=== PATIENT | male | born 1960 | race Two or more races ===

== ENCOUNTER 2020-05-07 05:11 | Inpatient (IN) | payer OTHER ==
[2020-05-07] VITALS (16 sets, daily range): BP systolic 104–131; BP diastolic 68–88
[~2020-05-07] VITALS: Ht 175.3 cm; Wt 108.9 kg
[~2020-05-07 05:11] MED LIST: AMLODIPINE BESY10 MG ORAL; LISINOPRIL40 MG ORAL
[2020-05-07] MEDS ORDERED: Tranexamic Acid 1,000 MG in NS 55 ML IVPB ONE (06:30)
[2020-05-07] MEDS ORDERED: Ropivacaine 5mg/ml Vial 20ml INJ ONE (06:31)
[2020-05-07] MEDS ORDERED: EPINEPHrine 1mg/1ml Amp ONE (06:31)
[2020-05-07] MEDS ORDERED: Bacitracin 50000 Units Vial ONE (06:32)
--- NOTE | 2020-05-07 06:35 | Anethesia Preoperative Eval ---
Anesthesia Pre-op PMH/ROS General Date of Evaluation: May 07, 2020 Time of Evaluation: 06:56 Anesthesiologist: Sona ASA Score: ASA 3 Mallampati Score Class I : Soft palate, uvula, fauces, pillars visible Class II: Soft palate, uvula, fauces visible Class III: Soft palate, base of uvula visible Class IV: Only hard plate visible Mallampati Classification: Class III Surgeon: Semaj Diagnosis: R Knee Pain Surgical Procedure: R Knee Total Arthroplasty Anesthesia History: none Family History: no anesthesia problems Allergies: Coded Allergies: No Known Allergies (Unverified , 05/03/20) Medications: see eMAR Patient NPO?: Yes Past Medical History Cardiovascular: Reports: HTN, other - HL Gastrointestinal/Genitourinary: Reports: GERD Other: obesity - BMI 35 Anesthesia Pre-op Phys. Exam Physician Exam Last Vital Signs Date Time Temp Pulse Resp B/P (MAP) Pulse Ox O2 Delivery O2 Flow Rate FiO2 05/07/20 05:38 97.7 79 18 122/76 (91) 97 Constitutional: NAD Neurologic: CN 2-12 intact Cardiovascular: RRR Respiratory: CTA Gastrointestinal: S/NT/ND Airway Exam Mallampati Score: Class III MO: full ROM: limited Teeth: missing, intact Anesthesia Pre-op A/P Risk Assessment & Plan Assessment: ASA 3 Plan: GA, SED, Adductor Block Status Change Before Surgery: No Pre-Antibiotics Dru Grams Ancef IV Given Within 1 Hr of Incision: Yes Time Given: 07:16 Dilip Magallanes MD May 07, 2020 06:35
[2020-05-07] MEDS ORDERED: Lidocaine 1% MPF 10mg/ml 5ml ONE (06:36)
[2020-05-07] MEDS ORDERED: Sodium Chloride 10ml vial INJ ONE (06:36)
[2020-05-07] MEDS ORDERED: NS Irrig 1000ml IRRIG ONE ×4 (06:37→07:41)
[2020-05-07] MEDS ORDERED: Hydromorphone 0.5mg/0.5ml inj IVP PRN (06:45)
[2020-05-07] MEDS ORDERED: fentaNYL 100 mcg/2 mL IV PRN (06:45)
[2020-05-07] MEDS ORDERED: Metoclopramide 10mg/2ml Inj IVP PRN (06:45)
[2020-05-07] MEDS ORDERED: Midazolam 2mg/2ml Inj IVP PRN (06:45)
[2020-05-07] MEDS ORDERED: DiphenhydrAMINE 50mg/ml Inj IVP PRN (06:45)
[2020-05-07] MEDS ORDERED: Labetalol 5mg/ml 20ml vial IV PRN (06:45)
[2020-05-07] MEDS ORDERED: Acetaminophen (Non formulary) 100 ML IV ONE (06:45)
[2020-05-07] MEDS ORDERED: HYDROcodone/Acetamin 7.5/325 tab ORAL PRN ×2 (06:45→07:15)
[2020-05-07] MEDS ORDERED: LORazepam Inj 2mg/ml 1ml IV PRN (06:45)
[2020-05-07] MEDS ORDERED: oxyCODONE HCL/Acetaminophen 5/325mg ORAL PRN (06:45)
[2020-05-07] MEDS ORDERED: Meperidine 25mg/1ml Inj (FOR RIGORS ONLY) IV PRN (06:45)
[2020-05-07] MEDS ORDERED: HYDROcodone/Acetamin 5/325 tab ORAL PRN (06:45)
[2020-05-07] MEDS ORDERED: Atropine Sulfate 0.4mg/ml inj IVP PRN (06:45)
[2020-05-07] MEDS ORDERED: LR 1000ml 1,000 ML IVLG SCH (06:45)
[2020-05-07] MEDS ORDERED: NS Irrig 1000ml ONE (07:00)
[2020-05-07] MEDS ORDERED: celeBREX 200mg Cap **SURGERY PATIENTS ONLY ORAL ONE (07:00)
[2020-05-07] MEDS ORDERED: oxyCONTIN 10mg tab ORAL ONE (07:00)
[2020-05-07] MEDS ORDERED: LR 1000ml ONE (07:00)
[2020-05-07] MEDS ORDERED: Sterile Water Irrig 1000ml IRRIG ONE (07:00)
[2020-05-07] MEDS ORDERED: ceFAZolin 1gm IVPB IVPB ONE ×2 (07:00)
--- NOTE | 2020-05-07 07:01 | Pre-Procedure Note/Attestation ---
Pre-Procedure Note/Attestation Complete Prior to Procedure Planned Procedure: right Procedure Narrative: right total knee arthroplasty Indications for Procedure Pre-Operative Diagnosis: right knee arthritis Attestation I attest that I discussed the nature of the procedure; its benefits; risks and complications; and alternatives (and the risks and benefits of such alternatives), prior to the procedure, with the patient (or the patient's legal aircraft sales representative). I attest that, if there was a reasonable possibility of needing a blood transfusion, the patient (or the patient's legal aircraft sales representative) was given the [facility] standardized written summary, pursuant to the Beau Atiya Blood Safety Act ([place] Health and Safety Code # 1645, as amended). I attest that I re-evaluated the patient just prior to the surgery and that there has been no change in the patient's H&P, except as documented below: NONE Kelechi Cha MD May 07, 2020 07:01
[2020-05-07] MEDS ORDERED: HYDROmorphone 1mg/ml Carpuject SUBQ PRN (07:15)
[2020-05-07] MEDS ORDERED: Milk of Magnesia 30ml Ud ORAL PRN (07:15)
[2020-05-07] MEDS ORDERED: fentaNYL 100 mcg/2 mL IV ONE (07:53)
--- NOTE | 2020-05-07 09:46 | Brief Operative Note ---
Immediate Post Operative Note Operative Note Chief Complaint: right knee pain Pre-op Diagnosis: right knee arthritis Procedure: right total knee arthroplasty Post-op Diagnosis: same as pre-op Findings: consistent w/pre-op dx studies Surgeon: md keara Billet Header: temi lopez Anesthesiologist: md gudelia Anesthesia: general, local Specimen: yes Complications: none Condition: stable Fluids: ns Estimated Blood Loss: minimal Drains: none Implant(s) used?: Yes - Sindi Morley May 07, 2020 09:46
--- NOTE | 2020-05-07 09:57 | Immediate Post-Op Evaluation ---
Immediate Post-Op Evalulation Immediate Post-Op Evalulation Procedure: R Total Knee Arthroplasty Date of Evaluation: May 07, 2020 Time of Evaluation: 10:09 IV Fluids: 900 LR Blood Products: 0 Estimated Blood Loss: 50 Urinary Output: 200 Blood Pressure Systolic: 131 Blood Pressure Diastolic: 88 Pulse Rate: 81 Respiratory Rate: 16 O2 Sat by Pulse Oximetry: 92 Temperature (Fahrenheit): 98 Pain Score (1-10): 2 Nausea: No Vomiting: No Complications 0 Patient Status: awake, reacts, patent, none Hydration Status: adequate Dru Grams Ancef IV Given Within 1 Hr of Incision: Yes Time Given: 07:16 Dilip Magallanes MD May 07, 2020 09:57
--- NOTE | 2020-05-07 09:58 | 48 Hour Post Anesthesia Eval ---
Post Anesthesia Evaluation Procedure: R Total Knee Arthroplasty Date of Evaluation: May 07, 2020 Time of Evaluation: 12:23 Blood Pressure Systolic: 128 0: 81 Pulse Rate: 76 Respiratory Rate: 18 Temperature (Fahrenheit): 98.2 O2 Sat by Pulse Oximetry: 94 Airway: patent Nausea: No Vomiting: No Pain Intensity: 2 Hydration Status: adequate Cardiopulmonary Status: Stable Mental Status/LOC: patient returned to baseline Follow-up Care/Observations: 0 Post-Anesthesia Complications: 0 Follow-up care needed: ready to discharge Dilip Magallanes MD May 07, 2020 09:58
[2020-05-07] MEDS: D5 1/2NS w/KCl 20mEq 1,000 ML IV SCH (12:59)
[2020-05-07] MEDS: oxyCONTIN 10mg tab ORAL SCH (12:59)
[2020-05-07] MEDS: Docusate 100mg cap ORAL SCH ×2 (13:00→17:42)
--- NOTE | 2020-05-07 13:00 | Operative Note - Dictated ---
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 PROCEDURE PERFORMED: Right total knee arthroplasty using Anurag Persona system, size 9 femur, size H tibia, size 60 mm ultra cross-linked vitamin D impregnated polyethylene and size 38 mm all-poly patella. SURGEON: Kelechi Cha MD. SHIELD OPERATOR: Sindi Mendoza PA-C. ANESTHESIOLOGIST: Dilip Magallanes MD. ANESTHESIA: LMA anesthesia combined with adductor block. ESTIMATED BLOOD LOSS: Less than 100 mL. TOURNIQUET TIME: 78 minutes. COMPLICATIONS: None. BRIEF HISTORY: The patient is a pleasant 60-year-old gentleman, who has had ongoing right knee pain and inability to ambulate very well. He was first treated conservatively. However, he continued to be symptomatic. After full discussion of risks and benefits of surgery and complications associated with it including infection, bleeding, neurovascular complication, possibility of DVT, possible PE, possible loss of motion, infection requiring resection arthroplasty, revision surgery, instability and loosening down the line, he opted for surgical treatment as described above. OPERATIVE PROCEDURE: The patient was brought to the operating room table and was placed supine. All pressure points were well padded. General LMA anesthesia was induced and the right knee was prepped and draped in the usual sterile fashion. Preoperative antibiotics were given and tranexamic acid was given and time-out was performed. The right knee was exsanguinated. Tourniquet was inflated to 275 mmHg. Standard anterior approach to the knee was undertaken. The incision was taken through subcutaneous tissue and medial parapatellar arthrotomy was performed. The medial releases were performed and deep fibers of the MCL were removed. There were extensive osteophytes on the tibial side and the femoral side, which were removed. The patella was then everted and knee was flexed. The ACL and PCL were resected. At this point, intramedullary access into the femur was obtained. Intramedullary guide was placed in the femur. A 6-degree valgus femoral cut was performed without any complications. Sizing was then performed and size 9 appeared to be the right size. A 3 degrees of external rotation was built into the size 9 cutting guide and at this point in time, the anterior, posterior, and chamfer cuts were performed in 3 degrees external rotation. Appropriate retractors were placed in to protect the vital structures including ligaments and vessels and nerves. Once this was completed, a trial femur was applied and was slightly lateralized and peg holes were drilled with excellent fit. At this point, care was given to the tibia. Extramedullary guide was applied onto the tibia and the knee was flexed. Posterior, medial, and lateral retractors were placed in. The tibia had significant wear on the medial side. Consideration was given to the augments. However, it was felt that a standard cut would be reasonable and would be a better long-term for this patient. Therefore, recreating anatomical axis of the tibia using the anterior crest of the tibia, a standard tibial cut was performed about 8 degrees of posterior slope. Once this was completed, the flexion-extension gap was checked and appeared to be equal. At this point, size H tibia appeared to be right size. It was placed about 3 degrees external rotation and drilled and punched. The sizing of the poly was made and size 16 poly appeared to be the right size with good flexion, extension and excellent stability at 0, 30 degrees, 45 degrees, 90 degrees of flexion. Once this was applied, the knee was extended and care was given to the patella. The patella was everted. It measured 27 mm. A freehand patellar cut was performed and 15 mm patella was remaining. Sizing was performed and 38 mm size patella appeared to be the right size. Peg holes were drilled and a trial patella was applied and there was excellent patellofemoral tracking. At this point, all components were trialed and appeared to be excellent patellofemoral tracking, excellent range of motion and excellent stability as described. At this point, all trial components were removed. The knee was thoroughly irrigated using Simpulse irrigation. Cement was mixed and the tibial component, femoral component, patella components were all cemented and under compression and all excess cement was removed. At this point, trialing with 16 mm poly was then again done and appeared to be excellent range of motion with full extension, full flexion, excellent stability as described previously. At this point, the tibial plate was washed thoroughly using Simpulse irrigation and a 16 mm ultra cross-linked poly with vitamin D impregnation was then locked in without any complication. The knee was reduced and patellofemoral tracking, range of motion and stability was checked and appeared to be excellent. At this point, the tourniquet was deflated and there was minimal bleeding. These were coagulated. The extensor mechanism was closed using #1 Vicryl suture. Subcutaneous tissue was closed using 2-0 Vicryl suture. Skin was closed using 3-0 Monocryl sutures. Dermabond was applied and sterile dressing was applied. The patient was taken to recovery room in stable condition. All lap counts and instrument counts were correct. Kelechi Cha M.D. DR: SHAJI JOB#: [id number] CC: MILLY
[2020-05-07] MEDS: ceFAZolin sod 1 GM in D5W 55 ML IV SCH ×2 (15:43→23:54)
--- NOTE | 2020-05-07 21:04 | General Progress Note ---
Subjective Allergies: Coded Allergies: No Known Allergies (Unverified , 05/03/20) Subjective seen post op pain controlled no chest pain or sob Objective Last 24 Hour Vital Signs Date Time Temp Pulse Resp B/P (MAP) Pulse Ox O2 Delivery O2 Flow Rate FiO2 05/07/20 16:00 98.9 95 18 121/74 (90) 95 05/07/20 13:00 98.6 90 20 104/68 (80) 93 05/07/20 12:30 98.6 74 20 107/78 (88) 94 05/07/20 12:00 98.6 91 20 107/78 (88) 94 05/07/20 11:30 Nasal Cannula 3.0 05/07/20 11:30 98.0 84 20 111/71 (84) 93 05/07/20 11:15 97.4 87 19 112/75 95 Nasal Cannula 6 05/07/20 11:05 89 20 116/77 95 Nasal Cannula 6 05/07/20 10:50 83 18 113/79 96 Nasal Cannula 6 05/07/20 10:35 79 19 118/81 94 Simple Mask 6 05/07/20 10:20 75 21 114/80 94 Simple Mask 6 05/07/20 10:10 74 23 111/79 93 Simple Mask 6 05/07/20 10:00 75 22 104/77 93 Simple Mask 6 05/07/20 09:58 76 18 94 05/07/20 09:57 81 16 92 05/07/20 09:55 75 24 113/72 94 Simple Mask 6 05/07/20 09:51 98.0 79 23 131/88 94 Simple Mask 6 05/07/20 05:38 97.7 79 18 122/76 (91) 97 Intake and Output 05/06/20 05/07/20 19:00 07:00 # Voids 1 Height (Feet): 5 Height (Inches): 9.00 Weight (Pounds): 240 General Appearance: WD/WN, no apparent distress Neck: supple Cardiovascular: normal rate Respiratory/Chest: lungs clear Abdomen: soft Edema: no edema noted Arm (L), no edema noted Arm (R), no edema noted Leg (L), no edema noted Leg (R), no edema noted Pedal (L), no edema noted Pedal (R), no edema noted Generalized Objective knee wrapped neurovascular intact Assessment/Plan Assessment/Plan: sp knee reeplacement ho htn post op pain control bp controlled restart bp meds dvt and ulcer prophylaxis Trav Fernandes MD May 07, 2020 21:04
[2020-05-08] VITALS: BP 118/70
[2020-05-08] MEDS: oxyCONTIN 10mg tab ORAL SCH ×2 (01:13→13:08)
[2020-05-08] MEDS: D5 1/2NS w/KCl 20mEq 1,000 ML IV SCH ×2 (01:23→17:49)
[2020-05-08 04:00] VITALS: BP 120/75
[2020-05-08] MEDS: HYDROcodone/Acetamin 5/325 tab ORAL PRN ×2 (05:56→17:00)
[2020-05-08 07:49] LABS: BASOPHILS % (AUTO) 0.2 % (0.0-2.0); HEMATOCRIT 40.2 % (42.0-52.0); HEMOGLOBIN 13.3 G/DL (14.2-18.0); LYMPHOCYTES % (AUTO) 9.3 % (20.0-45.0); MEAN CORPUSCULAR VOLUME 94 FL (80-99); NEUTROPHILS % (AUTO) 82.5 % (45.0-75.0); PLATELET COUNT 233 K/UL (150-450); RED BLOOD COUNT 4.28 M/UL (4.70-6.10); RED CELL DISTRIBUTION WIDTH 12.7 % (11.6-14.8); WHITE BLOOD COUNT 13.7 K/UL (4.8-10.8)
[2020-05-08 08:00] VITALS: BP 144/77
[2020-05-08 08:15] LABS: ALANINE AMINOTRANSFERASE 22 U/L (12-78); ALBUMIN 3.2 G/DL (3.4-5.0); ALKALINE PHOSPHATASE 42 U/L (46-116); ANION GAP 10 mmol/L (5-15); ASPARTATE AMINO TRANSFERASE 16 U/L (15-37); BILIRUBIN,TOTAL 0.4 MG/DL (0.2-1.0); BLOOD UREA NITROGEN 16 mg/dL (7-18); CALCIUM 8.2 MG/DL (8.5-10.1); CARBON DIOXIDE 22 MMOL/L (21-32); CHLORIDE 106 MMOL/L (98-107); CREATININE 0.9 MG/DL (0.55-1.30); POTASSIUM 4.3 MMOL/L (3.5-5.1); SODIUM 138 MMOL/L (136-145)
--- NOTE | 2020-05-08 08:15 | Orthopedic Progress Note ---
Orthopedic - Progress Note Subjective Symptoms: c/o post-op knee pain, other - walked a little yesterday Objective Laboratory Tests Test 05/08/20 05:53 White Blood Count 13.7 K/UL (4.8-10.8) H Red Blood Count 4.28 M/UL (4.70-6.10) L Hemoglobin 13.3 G/DL (14.2-18.0) L Hematocrit 40.2 % (42.0-52.0) L Mean Corpuscular Volume 94 FL (80-99) Mean Corpuscular Hemoglobin 31.0 PG (27.0-31.0) Mean Corpuscular Hemoglobin Concent 33.0 G/DL (32.0-36.0) Red Cell Distribution Width 12.7 % (11.6-14.8) Platelet Count 233 K/UL (150-450) Mean Platelet Volume 7.0 FL (6.5-10.1) Neutrophils (%) (Auto) 82.5 % (45.0-75.0) H Lymphocytes (%) (Auto) 9.3 % (20.0-45.0) L Monocytes (%) (Auto) 8.0 % (1.0-10.0) Eosinophils (%) (Auto) 0.0 % (0.0-3.0) Basophils (%) (Auto) 0.2 % (0.0-2.0) Sodium Level Pending Potassium Level Pending Chloride Level Pending Carbon Dioxide Level Pending Blood Urea Nitrogen Pending Creatinine Pending Estimat Glomerular Filtration Rate Pending Glucose Level Pending Calcium Level Pending Total Bilirubin Pending Aspartate Amino Transf (AST/SGOT) Pending Alanine Aminotransferase (ALT/SGPT) Pending Alkaline Phosphatase Pending Total Protein Pending Albumin Pending Globulin Pending Last 24 Hour Vital Signs Date Time Temp Pulse Resp B/P (MAP) Pulse Ox O2 Delivery O2 Flow Rate FiO2 05/08/20 06:49 98.0 05/08/20 04:00 98.0 73 19 120/75 (90) 95 05/08/20 00:00 98.4 84 17 118/70 (86) 96 05/07/20 21:00 Nasal Cannula 3.0 05/07/20 20:00 99.1 90 18 109/73 (85) 95 11/17/20 16:00 98.9 95 18 121/74 (90) 95 05/07/20 13:00 98.6 90 20 104/68 (80) 93 05/07/20 12:30 98.6 74 20 107/78 (88) 94 05/07/20 12:00 98.6 91 20 107/78 (88) 94 05/07/20 11:30 Nasal Cannula 3.0 05/07/20 11:30 98.0 84 20 111/71 (84) 93 05/07/20 11:15 97.4 87 19 112/75 95 Nasal Cannula 6 05/07/20 11:05 89 20 116/77 95 Nasal Cannula 6 05/07/20 10:50 83 18 113/79 96 Nasal Cannula 6 05/07/20 10:35 79 19 118/81 94 Simple Mask 6 05/07/20 10:20 75 21 114/80 94 Simple Mask 6 05/07/20 10:10 74 23 111/79 93 Simple Mask 6 05/07/20 10:00 75 22 104/77 93 Simple Mask 6 05/07/20 09:58 76 18 94 05/07/20 09:57 81 16 92 05/07/20 09:55 75 24 113/72 94 Simple Mask 6 05/07/20 09:51 98.0 79 23 131/88 94 Simple Mask 6 Intake and Output0 05/07/20 05/08/20 19:00 07:00 Intake Total 1930 ml 1005 ml Output Total 650 ml 1200 ml Balance 1280 ml -195 ml Intake Oral 480 ml 480 ml IV Total 1450 ml 525 ml Output Urine Total 600 ml 1200 ml Estimated Blood Loss 50 ml # Voids 1 4 Laboratory Tests Test 05/08/20 05:53 White Blood Count 13.7 K/UL (4.8-10.8) H Red Blood Count 4.28 M/UL (4.70-6.10) L Hemoglobin 13.3 G/DL (14.2-18.0) L Hematocrit 40.2 % (42.0-52.0) L Mean Corpuscular Volume 94 FL (80-99) Mean Corpuscular Hemoglobin 31.0 PG (27.0-31.0) Mean Corpuscular Hemoglobin Concent 33.0 G/DL (32.0-36.0) Red Cell Distribution Width 12.7 % (11.6-14.8) Platelet Count 233 K/UL (150-450) Mean Platelet Volume 7.0 FL (6.5-10.1) Neutrophils (%) (Auto) 82.5 % (45.0-75.0) H Lymphocytes (%) (Auto) 9.3 % (20.0-45.0) L Monocytes (%) (Auto) 8.0 % (1.0-10.0) Eosinophils (%) (Auto) 0.0 % (0.0-3.0) Basophils (%) (Auto) 0.2 % (0.0-2.0) Sodium Level Pending Potassium Level Pending Chloride Level Pending Carbon Dioxide Level Pending Blood Urea Nitrogen Pending Creatinine Pending Estimat Glomerular Filtration Rate Pending Glucose Level Pending Calcium Level Pending Total Bilirubin Pending Aspartate Amino Transf (AST/SGOT) Pending Alanine Aminotransferase (ALT/SGPT) Pending Alkaline Phosphatase Pending Total Protein Pending Albumin Pending Globulin Pending Wound: clean, dry, intact Drains: none Neuro Status: normal Vascular Status: normal Additional Comments xray reviewed Assessment Post-op Diagnosis POD 1 Procedure Performed right total knee arthroplasty Plan Plan: PT, pain management, discharge plan - to rehab tomorrow Sindi Mendoza May 08, 2020 08:15
[2020-05-08] MEDS: celeBREX 200mg Cap **SURGERY PATIENTS ONLY ORAL SCH (09:19)
[2020-05-08] MEDS: Lisinopril 20mg tab ORAL SCH (09:20)
[2020-05-08] MEDS: Docusate 100mg cap ORAL SCH ×3 (09:20→17:49)
[2020-05-08 12:00] VITALS: BP 115/73
[2020-05-08 16:00] VITALS: BP 116/68
[2020-05-08 20:00] VITALS: BP 107/63
[2020-05-09] MEDS: oxyCONTIN 10mg tab ORAL SCH ×2 (01:31→12:42)
[2020-05-09 04:00] VITALS: BP 110/76
[2020-05-09] MEDS: D5 1/2NS w/KCl 20mEq 1,000 ML IV SCH ×2 (05:00→18:20)
[2020-05-09 06:47] LABS: BASOPHILS % (AUTO) 0.6 % (0.0-2.0); EOSINOPHILS % (AUTO) 0.7 % (0.0-3.0); HEMATOCRIT 39.6 % (42.0-52.0); HEMOGLOBIN 12.9 G/DL (14.2-18.0); LYMPHOCYTES % (AUTO) 25.4 % (20.0-45.0); MEAN CORPUSCULAR VOLUME 95 FL (80-99); NEUTROPHILS % (AUTO) 64.4 % (45.0-75.0); PLATELET COUNT 214 K/UL (150-450); RED BLOOD COUNT 4.16 M/UL (4.70-6.10); RED CELL DISTRIBUTION WIDTH 12.9 % (11.6-14.8); WHITE BLOOD COUNT 11.5 K/UL (4.8-10.8)
--- NOTE | 2020-05-09 07:36 | Orthopedic Progress Note ---
Orthopedic - Progress Note Subjective Symptoms: c/o post-op knee pain Objective Last 24 Hour Vital Signs Date Time Temp Pulse Resp B/P (MAP) Pulse Ox O2 Delivery O2 Flow Rate FiO2 05/09/20 04:00 98.0 64 17 110/76 (87) 96 05/08/20 21:00 Room Air 05/08/20 20:00 97.6 74 19 107/63 (78) 94 05/08/20 17:30 98.0 05/08/20 16:00 98.0 68 20 116/68 (84) 95 05/08/20 13:38 98.0 05/08/20 12:00 97.8 74 18 115/73 (87) 95 05/08/20 09:20 120/75 05/08/20 09:20 73 120/75 05/08/20 09:00 Room Air 05/08/20 08:00 97.9 80 20 144/77 (99) 96 Intake and Output 05/08/20 05/09/20 18:59 06:59 Intake Total 400 ml 240 ml Output Total 800 ml 1200 ml Balance -400 ml -960 ml Intake Oral 400 ml 240 ml Output Urine Total 800 ml 1200 ml # Voids 4 Laboratory Tests Test 05/09/20 05:20 White Blood Count 11.5 K/UL (4.8-10.8) H Red Blood Count 4.16 M/UL (4.70-6.10) L Hemoglobin 12.9 G/DL (14.2-18.0) L Hematocrit 39.6 % (42.0-52.0) L Mean Corpuscular Volume 95 FL (80-99) Mean Corpuscular Hemoglobin 31.0 PG (27.0-31.0) Mean Corpuscular Hemoglobin Concent 32.6 G/DL (32.0-36.0) Red Cell Distribution Width 12.9 % (11.6-14.8) Platelet Count 214 K/UL (150-450) Mean Platelet Volume 6.9 FL (6.5-10.1) Neutrophils (%) (Auto) 64.4 % (45.0-75.0) Lymphocytes (%) (Auto) 25.4 % (20.0-45.0) Monocytes (%) (Auto) 9.0 % (1.0-10.0) Eosinophils (%) (Auto) 0.7 % (0.0-3.0) Basophils (%) (Auto) 0.6 % (0.0-2.0) Wound: clean, dry Drains: none Neuro Status: normal Vascular Status: normal Plan Plan: PT, pain management, discharge plan Kelechi Cha MD May 09, 2020 07:36
[2020-05-09 08:00] VITALS: BP 122/89
[2020-05-09] MEDS: Lisinopril 20mg tab ORAL SCH (08:42)
[2020-05-09] MEDS: celeBREX 200mg Cap **SURGERY PATIENTS ONLY ORAL SCH (08:43)
[2020-05-09] MEDS: HYDROcodone/Acetamin 5/325 tab ORAL PRN ×3 (08:43→20:53)
[2020-05-09] MEDS: Docusate 100mg cap ORAL SCH ×3 (08:43→17:20)
[2020-05-09 12:00] VITALS: BP 111/69
--- NOTE | 2020-05-09 14:10 | Diagnostic Imaging Report ---
EXAM: XR Right Knee, 1 or 2 Views CLINICAL HISTORY: POST-OP TECHNIQUE: Frontal and/or lateral views of the right knee. COMPARISON: None FINDINGS: Bones/joints: Changes of recent right knee arthroplasty. No evidence of hardware complication. No displaced fracture or dislocation identified. Osteopenia. Soft tissues: Soft tissue swelling and gas is likely secondary to recent surgery. IMPRESSION: Changes of recent right knee arthroplasty. No evidence of hardware complication.
[2020-05-09 16:00] VITALS: BP 121/74
--- NOTE | 2020-05-09 18:20 | General Progress Note ---
Subjective Allergies: Coded Allergies: No Known Allergies (Unverified , 05/03/20) Subjective note from 05/08/2020 post op pain controlled no chest pain or sob pos gas no bm yet Objective Last 24 Hour Vital Signs Date Time Temp Pulse Resp B/P (MAP) Pulse Ox O2 Delivery O2 Flow Rate FiO2 05/09/20 16:00 98.6 67 20 121/74 (90) 96 05/09/20 15:11 98.0 05/09/20 13:12 98.0 05/09/20 12:00 98.4 65 20 111/69 (83) 95 05/09/20 09:13 98.0 05/09/20 09:00 Room Air 05/09/20 08:42 122/89 05/09/20 08:42 83 122/89 05/09/20 08:00 98.1 91 18 122/89 (100) 97 05/09/20 04:00 98.0 64 17 110/76 (87) 96 05/08/20 21:00 Room Air 05/08/20 20:00 97.6 74 19 107/63 (78) 94 Intake and Output 05/08/20 05/09/20 19:00 07:00 Intake Total 400 ml 240 ml Output Total 800 ml 1200 ml Balance -400 ml -960 ml Intake Oral 400 ml 240 ml Output Urine Total 800 ml 1200 ml # Voids 4 Laboratory Tests 05/09/20 05:20: White Blood Count 11.5H, Red Blood Count 4.16L, Hemoglobin 12.9L, Hematocrit 39.6L, Mean Corpuscular Volume 95, Mean Corpuscular Hemoglobin 31.0, Mean Corpuscular Hemoglobin Concent 32.6, Red Cell Distribution Width 12.9, Platelet Count 214, Mean Platelet Volume 6.9, Neutrophils (%) (Auto) 64.4, Lymphocytes (%) (Auto) 25.4, Monocytes (%) (Auto) 9.0, Eosinophils (%) (Auto) 0.7, Basophils (%) (Auto) 0.6 Height (Feet): 5 Height (Inches): 9.00 Weight (Pounds): 240 General Appearance: WD/WN, no apparent distress Neck: supple Cardiovascular: normal rate Respiratory/Chest: lungs clear Abdomen: soft Edema: no edema noted Arm (L), no edema noted Arm (R), no edema noted Leg (L), no edema noted Leg (R), no edema noted Pedal (L), no edema noted Pedal (R), no edema noted Generalized Objective knee wrapped neurovascular intact Assessment/Plan Assessment/Plan: sp knee reeplacement ho htn post op pain control bp controlled restart bp meds stool softners laxatives dvt and ulcer prophylaxis planning on going Trav Campbell MD May 09, 2020 18:20
--- NOTE | 2020-05-09 18:21 | General Progress Note ---
Subjective Allergies: Coded Allergies: No Known Allergies (Unverified , 05/03/20) Subjective note from 05/09/2020 post op pain controlled no chest pain or sob pos gas no bm yet pos constipated Objective Last 24 Hour Vital Signs Date Time Temp Pulse Resp B/P (MAP) Pulse Ox O2 Delivery O2 Flow Rate FiO2 05/09/20 16:00 98.6 67 20 121/74 (90) 96 05/09/20 15:11 98.0 05/09/20 13:12 98.0 05/09/20 12:00 98.4 65 20 111/69 (83) 95 05/09/20 09:13 98.0 05/09/20 09:00 Room Air 05/09/20 08:42 122/89 05/09/20 08:42 83 122/89 05/09/20 08:00 98.1 91 18 122/89 (100) 97 05/09/20 04:00 98.0 64 17 110/76 (87) 96 05/08/20 21:00 Room Air 05/08/20 20:00 97.6 74 19 107/63 (78) 94 Intake and Output 05/08/20 05/09/20 19:00 07:00 Intake Total 400 ml 240 ml Output Total 800 ml 1200 ml Balance -400 ml -960 ml Intake Oral 400 ml 240 ml Output Urine Total 800 ml 1200 ml # Voids 4 Laboratory Tests 05/09/20 05:20: White Blood Count 11.5H, Red Blood Count 4.16L, Hemoglobin 12.9L, Hematocrit 39.6L, Mean Corpuscular Volume 95, Mean Corpuscular Hemoglobin 31.0, Mean Corpuscular Hemoglobin Concent 32.6, Red Cell Distribution Width 12.9, Platelet Count 214, Mean Platelet Volume 6.9, Neutrophils (%) (Auto) 64.4, Lymphocytes (%) (Auto) 25.4, Monocytes (%) (Auto) 9.0, Eosinophils (%) (Auto) 0.7, Basophils (%) (Auto) 0.6 Height (Feet): 5 Height (Inches): 9.00 Weight (Pounds): 240 General Appearance: WD/WN Neck: supple Cardiovascular: normal rate Respiratory/Chest: lungs clear Abdomen: soft Objective knee wrapped neurovascular intact Assessment/Plan Assessment/Plan: sp knee reeplacement ho htn post op pain control bp controlled bp meds stool softners laxatives dvt and ulcer prophylaxis planning on going CRI Trav Fernandes MD May 09, 2020 18:21
[2020-05-09 20:00] VITALS: BP 121/75
[2020-05-10] VITALS: BP 112/62
[2020-05-10] MEDS: oxyCONTIN 10mg tab ORAL SCH ×2 (00:56→12:43)
[2020-05-10 04:00] VITALS: BP 113/76
[2020-05-10 06:43] LABS: EOSINOPHILS % (AUTO) 3.4 % (0.0-3.0); HEMATOCRIT 38.4 % (42.0-52.0); HEMOGLOBIN 12.6 G/DL (14.2-18.0); LYMPHOCYTES % (AUTO) 29.6 % (20.0-45.0); MEAN CORPUSCULAR VOLUME 94 FL (80-99); MONOCYTES % (AUTO) 8.2 % (1.0-10.0); NEUTROPHILS % (AUTO) 57.8 % (45.0-75.0); PLATELET COUNT 204 K/UL (150-450); RED BLOOD COUNT 4.07 M/UL (4.70-6.10); RED CELL DISTRIBUTION WIDTH 12.6 % (11.6-14.8); WHITE BLOOD COUNT 9.3 K/UL (4.8-10.8)
[2020-05-10] MEDS: D5 1/2NS w/KCl 20mEq 1,000 ML IV SCH ×2 (07:40→08:17)
[2020-05-10 08:00] VITALS: BP 99/63
[2020-05-10] MEDS: Docusate 100mg cap ORAL SCH ×2 (08:15→12:43)
[2020-05-10] MEDS: celeBREX 200mg Cap **SURGERY PATIENTS ONLY ORAL SCH (08:15)
[2020-05-10] MEDS: HYDROcodone/Acetamin 5/325 tab ORAL PRN (08:16)
[2020-05-10] MEDS: Lisinopril 20mg tab ORAL SCH ×2 (09:00→12:43)
--- NOTE | 2020-05-10 09:08 | Orthopedic Progress Note ---
Orthopedic - Progress Note Subjective Symptoms: improved, other - delay in discharge Objective Laboratory Tests Test 05/10/20 05:35 White Blood Count 9.3 K/UL (4.8-10.8) Red Blood Count 4.07 M/UL (4.70-6.10) L Hemoglobin 12.6 G/DL (14.2-18.0) L Hematocrit 38.4 % (42.0-52.0) L Mean Corpuscular Volume 94 FL (80-99) Mean Corpuscular Hemoglobin 31.0 PG (27.0-31.0) Mean Corpuscular Hemoglobin Concent 32.9 G/DL (32.0-36.0) Red Cell Distribution Width 12.6 % (11.6-14.8) Platelet Count 204 K/UL (150-450) Mean Platelet Volume 6.5 FL (6.5-10.1) Neutrophils (%) (Auto) 57.8 % (45.0-75.0) Lymphocytes (%) (Auto) 29.6 % (20.0-45.0) Monocytes (%) (Auto) 8.2 % (1.0-10.0) Eosinophils (%) (Auto) 3.4 % (0.0-3.0) H Basophils (%) (Auto) 1.0 % (0.0-2.0) Last 24 Hour Vital Signs Date Time Temp Pulse Resp B/P (MAP) Pulse Ox O2 Delivery O2 Flow Rate FiO2 05/10/20 04:00 98.2 88 15 113/76 (88) 97 05/10/20 00:00 98.4 77 16 112/62 (79) 95 05/09/20 21:00 Room Air 05/09/20 20:00 98.4 78 18 121/75 (90) 94 05/09/20 16:00 98.6 67 20 121/74 (90) 96 05/09/20 15:11 98.0 05/09/20 13:12 98.0 05/09/20 12:00 98.4 65 20 111/69 (83) 95 05/09/20 09:13 98.0 Intake and Output 05/09/20 05/10/20 19:00 07:00 Intake Total 750 ml 600 ml Output Total 950 ml 1200 ml Balance -200 ml -600 ml Intake Oral 750 ml 600 ml Output Urine Total 950 ml 1200 ml # Voids 4 3 # Bowel Movements 2 Laboratory Tests Test 05/10/20 05:35 White Blood Count 9.3 K/UL (4.8-10.8) Red Blood Count 4.07 M/UL (4.70-6.10) L Hemoglobin 12.6 G/DL (14.2-18.0) L Hematocrit 38.4 % (42.0-52.0) L Mean Corpuscular Volume 94 FL (80-99) Mean Corpuscular Hemoglobin 31.0 PG (27.0-31.0) Mean Corpuscular Hemoglobin Concent 32.9 G/DL (32.0-36.0) Red Cell Distribution Width 12.6 % (11.6-14.8) Platelet Count 204 K/UL (150-450) Mean Platelet Volume 6.5 FL (6.5-10.1) Neutrophils (%) (Auto) 57.8 % (45.0-75.0) Lymphocytes (%) (Auto) 29.6 % (20.0-45.0) Monocytes (%) (Auto) 8.2 % (1.0-10.0) Eosinophils (%) (Auto) 3.4 % (0.0-3.0) H Basophils (%) (Auto) 1.0 % (0.0-2.0) Microbiology Date/Time Source Procedure Growth Status 05/09/20 12:05 Nasopharynx SARS-CoV-2 RdRp Gene Assay - Final Complete Assessment Post-op Diagnosis POD 3 Procedure Performed right total knee arthroplasty Plan Plan: discharge plan - to rehab Sindi Mendoza May 10, 2020 09:08 Kelechi Cha MD May 10, 2020 14:57
[2020-05-10 12:00] VITALS: BP 136/77
[2020-05-10 12:43] VITALS: BP 136/77
--- NOTE | 2020-05-10 21:30 | General Progress Note ---
Subjective Allergies: Coded Allergies: No Known Allergies (Unverified , 05/03/20) Subjective note from 05/09/2020 post op pain controlled no chest pain or sob ppos bm going to cri today Objective Last 24 Hour Vital Signs Date Time Temp Pulse Resp B/P (MAP) Pulse Ox O2 Delivery O2 Flow Rate FiO2 05/10/20 12:43 136/77 05/10/20 12:43 89 136/77 05/10/20 12:00 98.5 89 15 136/77 (96) 95 05/10/20 09:00 Room Air 05/10/20 08:00 99.0 88 15 99/63 (75) 95 05/10/20 04:00 98.2 88 15 113/76 (88) 97 05/10/20 00:00 98.4 77 16 112/62 (79) 95 Intake and Output 05/09/20 05/10/20 19:00 07:00 Intake Total 750 ml 600 ml Output Total 950 ml 1200 ml Balance -200 ml -600 ml Intake Oral 750 ml 600 ml Output Urine Total 950 ml 1200 ml # Voids 4 3 # Bowel Movements 2 Laboratory Tests 05/10/20 05:35: White Blood Count 9.3, Red Blood Count 4.07L, Hemoglobin 12.6L, Hematocrit 38.4L , Mean Corpuscular Volume 94, Mean Corpuscular Hemoglobin 31.0, Mean Corpuscular Hemoglobin Concent 32.9, Red Cell Distribution Width 12.6, Platelet Count 204, Mean Platelet Volume 6.5, Neutrophils (%) (Auto) 57.8, Lymphocytes (%) (Auto) 29 .6, Monocytes (%) (Auto) 8.2, Eosinophils (%) (Auto) 3.4H, Basophils (%) (Auto) 1.0 Height (Feet): 5 Height (Inches): 9.00 Weight (Pounds): 240 General Appearance: WD/WN Neck: supple Cardiovascular: normal rate Respiratory/Chest: lungs clear Abdomen: soft Objective knee wrapped neurovascular intact Assessment/Plan Assessment/Plan: sp knee reeplacement ho htn post op pain control bp controlled bp meds stool softners laxatives dvt and ulcer prophylaxis planning on going [facility] Trav Fernandes MD May 10, 2020 21:30
--- NOTE | 2020-05-12 15:16 | Discharge Summary ---
Discharge Summary Discharge Summary _ DATE OF ADMISSION: 05/07/2020 DATE OF DISCHARGE: 05/10/2020 SURGEON: Dr. Kelechi Cha CAD ENGINEER: Dr. Trav Fernandes BRIEF HOSPITAL COURSE: Patient is a 60-year-old gentleman, who has ongoing right knee pain and inability to ambulate very well. He was first treated conservatively, however he continued to be symptomatic. 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 He was admitted on 05/07/2020 and underwent right total knee arthroplasty. He tolerated procedure well. Surgery was uneventful. Post-operatively, patient was admitted for post- op care. He was closely followed by breastfeeding program coordinator. Blood pressure medications were restarted. He was placed on SCDs for DVT prophylaxis and was encouraged use of incentive spirometer. Patient was given pain management. He was seen by PT. he was given stool softeners and laxatives to help with bowel movement. Diet was advanced. Incision was clean, dry and intact. Patient was ambulating well with good pain control and was tolerating diet. Patient was eventually cleared for discharge. FINAL DIAGNOSES: Right knee end-stage arthritis with significant medial wear and varus deformity. PROCEDURE PERFORMED: Right total knee arthroplasty using [employer] system, size 9 femur, size H tibia, size 60 mm ultra cross-linked vitamin D impregnated polyethylene and size 38 mm all-poly patella. (Refer to Operative Report) DISCHARGE DISPOSITION: [facility] [place]. DISCHARGE MEDICATIONS: Refer to Medication Reconciliation Sheet. DISCHARGE INSTRUCTIONS: Post-op instructions given. Follow-up in a week. I have been assigned to complete a DC summary on this account, I was not involved with the patient's management.--CHET Concepcion Jacqueline Robles NP May 12, 2020 15:16
== END 2020-05-10 13:44 | disposition short-term general hospital (02) | DRG 470 ==
LOC: SDSOVERFLO 05:11 → 3E 11:25
PROC: 0SRC069 Replacement of Right Knee Joint with Oxidized Zirconium on Polyethylene Synthetic Substitute, Cemented, Open Approach (ICD-10-PCS; principal; 2020-05-07 07:00)
DX: M17.11 Unilateral primary osteoarthritis, right knee (principal); I10 Essential (primary) hypertension; K21.9 Gastro-esophageal reflux disease without esophagitis; M21.161 Varus deformity, not elsewhere classified, right knee
CPT/HCPCS: 36415; 80053; 85025; 86850; 86900; 86901; 87081; 94003; 94150; J2405; J2795; U0002